=== PATIENT | female | born 1945 | race Caucasian/White ===

== ENCOUNTER → 2021-04-30 | Day surgery (SDC) | payer MEDICARE ==
[~2021-04-30] VITALS: Ht 165.1 cm; Wt 83.9 kg
[~2021-04-30] MED LIST: ALLOPURINOL300 MG PO; ASPIRIN EC81 MG PO; ATENOLOL25 MG PO; COZAAR100 MG PO; METAFOLBIC TAB1 EACH PO; PROTONIX 40MG T40 MG PO; TOPAMAX25 MG PO; TOPROL XL 25MG25 MG PO; VENLAFAXINE HCL75 MG PO; ZOCOR40 MG PO
[2021-04-30 09:03] LABS: HCT 46.1 % (37.0-47.0); HGB 15.1 g/dl (12.5-16.0); MCH 28.6 pg (25.0-31.0); MCHC 32.8 g/dL (32.0-36.0); MCV 87.3 fL (78.0-100.0); MPV 9.3 fL (6.0-9.5); RBC 5.28 M/uL (4.20-5.40); WBC 11.5 K/uL (4.0-10.5)
[2021-04-30 09:11] LABS: ALBUMIN 4.2 g/dL (3.4-5.0); BILIRUBIN - TOTAL 0.5 mg/dL (0.2-1.0); BUN/CREAT RATIO (CALC) 20.2 RATIO; CREATININE 0.84 mg/dL (0.51-0.95); GLOBULIN (CALCULATION) 4.4 g/dL; POTASSIUM 4.1 mmol/L (3.5-5.1); TOTAL PROTEIN 8.6 g/dL (6.4-8.2)
== END | disposition home or self-care (01) ==
LOC: FAS 08:12
PROVIDERS: Surgery
DX: K58.1 Irritable bowel syndrome with constipation (principal); K57.30 Diverticulosis of large intestine without perforation or abscess without bleeding; F41.9 Anxiety disorder, unspecified; K21.9 Gastro-esophageal reflux disease without esophagitis; I10 Essential (primary) hypertension; E78.00 Pure hypercholesterolemia, unspecified; I42.2 Other hypertrophic cardiomyopathy; I73.9 Peripheral vascular disease, unspecified; M10.9 Gout, unspecified; Z88.5 Allergy status to narcotic agent; Z79.82 Long term (current) use of aspirin; Z79.899 Other long term (current) drug therapy
CPT/HCPCS: 36415; 80053; 88305; J1610; J2405; J2704; J7120